=== PATIENT | female | born 1965 | race Caucasian/White ===

== ENCOUNTER → 2019-03-24 06:21 | Outpatient (CLI) | payer OTHER, SELFPAY ==
--- NOTE | 2019-03-24 14:05 | NEURO_ITS ---
NCS and/or EMG Patient Report Ordering Doctor: Nathaniel Vuong DATE OF SERVICE: 03/24/19 Mckenzie Edwards is a 53-year-old female presents for electrodiagnostic testing of the upper limbs. She reports numbness and tingling in the right hand. Electrodiagnostic findings: Right median motor nerve demonstrates prolonged dist al latency with normal amplitude and conduction velocity. Normal left median motor response. Normal ulnar motor response bilaterally. Normal median and ulnar F waves. Prolonged right median sensory latency at the wrist. Prolonged right median palmar latency. Normal radial and ulnar sensory responses. On needle EMG, all muscles tested in the upper limbs showed no evidence of denervation with normal motor unit action potentials Electrodiagnostic impression: This is an abnormal study in the upper limbs. 1. Electrodiagnostic findings demonstrate right-sided median mononeuropathy. This is consistent with a moderate right carpal tunnel syndrome. If there are any further questions, please do not hesitate to contact me.
== END ==
PROVIDERS: Family Provider Internal Medicine; PCP Internal Medicine; Referring Provider Nurse Practitioner Primary Care; Visit Provider Nurse Practitioner Primary Care
DX: G56.01 Carpal tunnel syndrome, right upper limb (principal); R20.2 Paresthesia of skin
CPT/HCPCS: 95886; 95912

== ENCOUNTER 2021-08-22 15:33 | Emergency (ER) | payer OTHER, SELFPAY ==
[2021-08-22 15:34] VITALS: BP 134/80; PULSE 82; RESP 14; TEMP 36.8; O2SAT 98; BMI 30.8
--- NOTE | 2021-08-22 15:44 | EX.ED.GENINJ ---
HPI History of Present Illness Chief Complaint: Head Injury Detail of Chief Complaint: Struck head against window and jammed her neck Informant: patient Onset/Context/Timing Onset: Days (Near fall Friday) Mechanism/Context: Blunt Injury and Fall Location: Vertex at head Current Severity: Mild Maximum Severity: Moderate Worsened by: None Relieved by: Nothing Associated Symptoms Associated Symptoms: Negative for Parasthesias, Weakness, Loss of function, Inability to ambulate, Loss of consciousness and Amnesia Narrative Narrative: Patient is a 56-year-old woman who had surgery at [facility] for a schwannoma. She has had problems with her balance prior to the surgery and has gotten possibly slightly worse since surgery. She states she lost her balance. She fell forward striking the top of her head against a window. The window did not break. She contacted the neurosurgeon because of persistent neck pain. He recommended that she go to the emergency department for further evaluation. She denies loss of conscious. She was not dazed. She does complain of intermittent mild headache over the past 24 hours. She denies any double vision, blurred vision or loss of vision. Nuys ringing in ears decreased hearing. She has trouble with speech or swallowing. She denies paresthesia, anesthesia or motor weakness upper lower extremity. She denies cardiac respiratory symptoms. She denies nausea or vomiting. Tetanus Immunization: 5-10 years Prior similar symptoms: Yes Recent Illness/Hospitalization: Yes (Surgery for schwannoma) [facility] Medical History (Updated 08/22/21 @ 16:[address] Ayden Gupta MD) Schwannoma Schwannoma of nerve of neck Allergy/AdvReac Type Severity Reaction Status Date / Time azithromycin [From Zithromax] AdvReac Rash Verified 08/22/21 15:34 Social History (Updated 08/22/21 @ 15:[address] Ayden Gupta MD) household members: none Smoking Status: Never smoker what type of physical activity do you participate in: none ROS ROS ED Constitutional Constitutional ED: Denies chills, fever(s), subjective, sweats or weight loss Eyes Eyes: Denies blurry vision or change in vision ENT ENT ED: Denies ear pain, rhinorrhea or sore throat Cardiovascular Cardiovascular: Denies chest pain or palpitations Respiratory/Chest Respiratory/Chest: Denies cough, dyspnea or dyspnea on exertion Gastrointestinal Gastrointestinal: Reports nausea; Denies abdominal pain, constipation, diarrhea, melena or vomiting Genitourinary Genitourinary ED: Denies dysuria, hematuria, LMP (females 10-50) or urinary frequency Musculoskeletal Musculoskeletal: Reports neck pain; Denies arthralgias, back pain or myalgias Integumentary Reports other Details: Healing incision right postauricular area ; Denies abscess, Abrasions or rash Neurologic Neurologic: Denies headache(s), paresthesias or weakness Endocrine Endocrinology: Denies polydipsia, polyphagia or polyuria EXAM Physical Exam Const Vital Signs: 08/22/21 15:34 08/22/21 15:50 Temperature 98.2 F Temperature Source Temporal Pulse Rate 82 Respiratory Rate 14 Respiratory Effort Normal Non-Labored Respiratory Depth Normal Respiratory Pattern Normal Blood Pressure 134/80 H Blood Pressure Mean 98 Pulse Ox 98 Oxygen Delivery Method Room Air Room Air Positive well nourished and well developed General Appearance ED: well developed HEENT Reports TM's clear atraumatic; Negative for tenderness Nose: Negative for septum abnormal Tympanic Membrane ED: Yes TM's clear Eyes PERRL and EOMs intact bilaterally Neck full ROM Neck Narrative: Patient reported mild discomfort with rotation to the right and having her touch her chin against her shoulder. She did not have discomfort with flexion extension. General: Negative for tenderness Resp normal respiratory effort and clear to auscultation bilaterally Cardio regular rhythm, S1 normal heart sound, S2 normal heart sound and no murmurs Rate: regular rate Neuro oriented x3, CN's II-XII intact bilaterally and no sensory deficits noted Sensorium / Orientation: alert Motor Exam: strength 5/5 throughout Deep Tendon Reflexes: Rt Triceps (C7): 3+, Lt Triceps (C7): 3+, Rt Biceps (C5, C6): 3+, Lt Biceps (C5, C6): 3+, Rt Brachioradialis (C6): 3+, Lt Brachioradialis (C6): 3+, Rt Patellar (L4): 3+, Lt Patellar (L4): 3+ and Rt Ankle (S1): 3+ Deep Tendon Reflexes Back: Rt Patellar (L4): 3+, Lt Patellar (L4): 3+ and Rt Ankle (S1): 3+ Plantar Reflex: Downgoing: bilateral Psych mental status grossly normal and thought process normal Skin no rashes or lesions noted, no wounds and No no jaundice Rashes: No rashes noted MDM MDM MDM Narrative Medical decision making narrative: Per the [place] CT head rule and [place] rule imaging of the head is not required. Patient has minimal neck pain will obtain x-ray of the neck to determine if there is any abnormality since this occurred several days ago. Suspect this is musculoskeletal. Radiography Diagnostic Testing: Clinical Impression(s) from Imaging Studies Cervical Spine X-Ray 08/22/21 16:00 IMPRESSION: Normal x-ray examination of the visualized cervical spine. Electronically Signed: Jonas Mejias MD at 16:18 EDT , Three-view x-ray of the cervical spine is normal. There is no degenerative changes, subluxation, blastic or lytic lesions. Alignment is normal. This was independently reviewed and interpreted by me. 1613 Discharge Plan Triage Chief Complaint: Head Injury ED Provider: Ayden Gupta Dx/Rx/DC Orders Clinical Impression: Contusion of head, Acute neck pain Instructions: ED Head Injury (Adult), ED Neck Sprain or Strain Primary Care Provider: Joslyn Dumas Referrals: Joslyn Dumas MD [Primary Care Provider] - As Needed Disposition Disposition: Home, Self Care
--- NOTE | 2021-08-22 16:00 | RAD_ITS ---
STUDY: X-RAY - CERVICAL SPINE REASON FOR EXAM: Female, 56 years old. Injury/Pain TECHNIQUE: 3 view(s) of the cervical spine were obtained. COMPARISON: None FINDINGS: Normal anterior atlantoaxial articulation. Normal odontoid process. Normal cervical lordosis. Normal vertebral bodies and endplates. Normal disc space heights. Normal visualized intervertebral neuroforamina. The soft tissue structures are unremarkable. RAD/Cerv Spine 2 or 3 Views IMPRESSION: Normal x-ray examination of the visualized cervical spine. Electronically Signed: Jonas Mejias MD at 16:18 EDT ,
[2021-08-22 16:34] VITALS: BP 128/76; PULSE 81; RESP 15; O2SAT 99
== END 2021-08-22 16:34 | disposition home or self-care (01) ==
PROVIDERS: Emergency Provider Emergency Medicine; PCP Internal Medicine; Visit Provider Emergency Medicine
DX: S00.93XA Contusion of unspecified part of head, initial encounter (principal); W01.198A Fall on same level from slipping, tripping and stumbling with subsequent striking against other object, initial encounter; M54.2 Cervicalgia; Z98.890 Other specified postprocedural states
CPT/HCPCS: 72040; 99282

== ENCOUNTER 2022-01-31 06:46 | Day surgery (SDC) | payer OTHER, SELFPAY ==
--- NOTE | 2022-01-22 13:38 | EKG12_ITS ---
Test Reason : PRE OP Blood Pressure : / mmHG Vent. Rate : 081 BPM Atrial Rate : 081 BPM P-R Int : 158 ms QRS Dur : 080 ms QT Int : 392 ms P-R-T Axes : 031 008 021 degrees QTc Int : 455 ms Normal sinus rhythm Normal ECG Confirmed by CHELE WHIPPLE, ELBA ([id number]), film editor GUCIHO DEL ROSARIO ([id number]) on 01/23/2022 9:31:26 AM Referred By: Eze Norton Confirmed By:ELBA ELAINE MD
--- NOTE | 2022-01-22 13:38 | RAD_ITS ---
STUDY: CHEST SERIES--2 VIEWS OF 1356 HOURS ON 01/22/2022 REASON FOR EXAM: Pre-operative chest for a 56-year-old female. TECHNIQUE: A standard 2 view chest x-ray series was obtained. COMPARISON: None. FINDINGS: Normal mineralization. Mild osteophytic degenerative changes of the thoracic spine. No cardiomegaly or heart failure. No pulmonary infiltrates, atelectasis, effusion, or pulmonary mass lesions. Multi-loop, dilated, air-filled small intestine beneath the left hemidiaphragm. RAD/Chest PA and Lateral IMPRESSION: 1. No active cardiopulmonary disease. 2. Multi-loop, dilated, air-filled small intestine beneath the left hemidiaphragm. Electronically Signed: Cain Vale MD at 2:02 EDT ,
[2022-01-22 14:14] LABS: Absolute Lymphocyte Count 1.67 X10^3/uL (0.83-4.51); Absolute Neutrophil Count 4.4 X10^3/uL (2.0-7.7); Basophil# 0.04 X10^3/uL; Basophil% 0.6 % (0-1); Eosinophil# 0.17 X10^3/uL; Eosinophils% 2.5 % (0-5); Hematocrit 39.7 % (37-47); Hemoglobin 13.2 g/dL (12.0-15.0); Lymphocyte # 1.67 X10^3/ul (0.83-4.51); Lymphocyte % 24.9 % (19-41); Mean Corp Hgb Conc 33.2 g/dL (32-36); Mean Corpuscular Hgb 29.1 pg (27.0-32.0); Mean Corpuscular Volume 87.6 fL (81-99); Monocyte# 0.47 X10^3/uL; NRBC Flagged by Analyzer 0 % (0-5); Neutrophil # 4.35 X10^3/uL (2.7-7.7); Neutrophil % 64.9 % (47-70); Platelet Count 253 K/mm3 (150-450); RBC Distribution Width CV 12.6 % (11.6-14.6); Red Blood Count 4.53 M/mm3 (4.2-5.4); White Blood Count 6.7 K/mm3 (4.4-11.0)
[2022-01-22 14:56] LABS: Thyroid Stim Hormone (TSH) 2.44 uIU/mL (0.358-3.74)
[2022-01-22 15:19] LABS: Anion Gap 7 (5-15); BUN 13 mg/dL (7-18); BUN/Creat Ratio 17.4 RATIO (10-20); Calcium,Total 9.3 mg/dL (8.5-10.1); Chloride 106 mmol/L (98-107); Creatinine, Serum 0.74 mg/dL (0.55-1.02); EST Glomerular Filtration Rate 85 mL/min (>60); Est Glom Filt Rate - Afr Amer 103 mL/min (>60); Glucose 100 mg/dL (74-106); Potassium 3.5 mmol/L (3.5-5.1); Sodium Level 142 mmol/L (136-145)
[2022-01-31 07:15] VITALS: BP 119/58; PULSE 85; RESP 18; TEMP 36.9; O2SAT 100; BMI 27.4
[2022-01-31] MEDS: Lactated Ringers 1,000 ML 15 ML IV ×2 (07:23→10:11)
[2022-01-31] MEDS: Cefazolin 2 GM in 0.9% Normal Saline 100 ML IV (08:00)
[2022-01-31] MEDS: Epinephrine (1 mg/ml) 1 MG/ML VIAL (08:30)
--- NOTE | 2022-01-31 09:42 | DCINST_ITS ---
Discharge Instructions Follow Up Care Test Results: Test results from this visit will be discussed in further detail at your follow- up appointment, if applicable. Discharge Plan Admission Primary Reason for Your Visit: Right shoulder rotator cuff repair Attending Provider: Eze Norton Primary Care Provider: Joslyn Dumas Instructions Additional Instructions / Restrictions: Follow preprinted instructions from your surgeons office Discharge Orders/Prescriptions Prescriptions: No Action levothyroxine 25 mcg tablet 25 mcg PO DAILY omeprazole 20 mg Capsule,Delayed Release(Dr/Ec) 20 mg PO DAILY escitalopram oxalate 10 mg tablet 10 mg PO DAILY vitamin B complex [B Complex] Capsule 1 cap PO DAILY cholecalciferol (vitamin D3) [Vitamin D3] 125 mcg (5,000 unit) Tablet 125 mcg PO DAILY Other Ambulatory Orders: 12 Lead EKG (Routine) Timeframe: 20220122 Location: None Selected Ordered By: Dr. Eze Norton Referrals / Follow Up: Joslyn Dumas MD [Primary Care Provider] - Eze Norton DO [Med Staff - Active Staff] - Within 2 Weeks Disposition Disposition (needs filled in before D/C Order can be placed): Home, Self Care
[2022-01-31 10:03] VITALS: BP 119/58; BP 127/63; PULSE 83; RESP 16; TEMP 35.9; O2SAT 100
[2022-01-31 10:15] VITALS: BP 119/58; BP 124/70; PULSE 74; RESP 14; O2SAT 100
--- NOTE | 2022-01-31 10:18 | PCM.OPRPT ---
Report of Operation Date of Procedure: 01/31/22 Description of Surgical Findings:: Preoperative diagnosis: 1. Right shoulder rotator cuff tear 2. Right shoulder subacromial impingement syndrome 3. Symptomatic right acromioclavicular arthrosis 4. Superior labral tear anterior posterior with biceps tendinosis right shoulder Postoperative diagnosis: 1. Right shoulder rotator cuff tears of the upper third subscapularis and 80% bursal partial thickness supraspinatus tear 2. Right shoulder subacromial impingement syndrome 3. Symptomatic right acromioclavicular arthrosis 4. Superior labral tear anterior posterior with biceps tendinosis right shoulder Procedure: 1. Diagnostic and operative right shoulder arthroscopy with rotator cuff repair 2. Right shoulder subacromial decompression 3. Right shoulder arthroscopic distal clavicle excision 4. Right shoulder arthroscopic debridement of labrum, capsular synovitis, subacromial bursitis 5. Right shoulder arthroscopic biceps tenodesis Primary Surgeon: Eze Norton DO Line Lead: Liana Hendricks PA-C Anesthesia: General LMA with interscalene block Anesthesiologist: Abel Mary MD [employer] Supervisor: Alex Reece CRNA Complications: None apparent Specimen: None Estimated blood loss: 10 cc IV fluids: Per anesthesia record Urine output: None Packing/drains: None Implants: Arthrex 4.75 mm swivel lock anchor x2 Intraoperative findings: Synovitis right shoulder, type II SLAP tear, extensive right shoulder subacromial bursitis, Downsloping acromioclavicular joint and distal acromion, upper third border subscapularis tear, 80% bursal sided tear of the supraspinatus Preoperative indications: This is a 56-year-old female seen in the outpatient setting for right shoulder pain and weakness. She had profound weakness of his supraspinatus. MRI was obtained. MRI demonstrated partial bursal sided tear of the supraspinatus, questionable subscapularis tear, labral tearing, downsloping spur from the acromion and AC joint arthrosis. I recommended a right shoulder diagnostic and operative arthroscopy with subacromial decompression, rotator cuff repair versus debridement, biceps tenodesis and distal clavicle excision. We discussed at length the risks, benefits, alternatives the procedure. Risks included but were not limited to bleeding, infection, loss of life or limb, nonhealing tendon, persistent pain, persistent weakness, stiffness, need for prolonged immobilization, prolonged therapy, DVT or PE, risk of anesthesia, neurovascular injury, need for additional surgery. Patient expressed understanding these risks and wished to proceed with surgery. Description of procedure: Patient was identified in the preoperative holding area by name, medical record number, and date of . Informed consent was confirmed with the patient. The operative extremity was marked with a surgical marker. All questions were answered to the patient's satisfaction. We discussed potential need for catheterization postoperatively. An interscalene block was administered prior to the procedure by the anesthesia staff. At time of her procedure, patient was brought to the operative suite and positioned supine a standard operating table with a beachchair attachment. All bony prominences were well-padded. General anesthesia was induced and laryngeal mask airway placed. After the tube was secured, we elevated the head of the bed to position the patient into the beachchair position. A pillow was placed on the patient's legs. All bony prominences were well-padded. The nonoperative extremity was placed in a well arm pierce. A strap was placed across the patient's torso and the butterfly attachment of the bed was removed to gain access to the posterior scapula. We then spun the bed approximately 45 degrees. We then prepped and draped the operative upper extremity in a normal, sterile orthopedic fashion. We performed a timeout with all parties in attendance in agreement with the side, site, and operation be performed. No concerns were voiced and we elected to proceed. 2 g Ancef was administered prior to the incision by anesthesia staff. I first outlined the bony landmarks of the shoulder. I established a standard posterior portal with an 11 blade scalpel. Blunt tipped trocar in cannula was inserted into the glenohumeral joint. The joint was insufflated with normal saline solution with epinephrine in the first 2 bags. Trocar was removed and diagnostic arthroscopy was commenced. I established a standard anterior portal with the assistance of a spinal needle under direct visualization just superior to the upper border of the subscapularis. Probing of the subscapularis as well as a posterior lever test revealed an upper third border subscapularis tear. Unstable biceps anchor was noted with peelback test. There was degenerative tearing of the glenoid labrum which appeared to be impinging in the glenohumeral joint. This was debrided with a radial resector. I then proceeded with repair of the subscapularis with a cinch stitch utilizing a fiber loop suture through the upper third border of the tendon. This was cinched and retrieved out the anterior portal. I then performed a loop and tack tenodesis arthroscopically of the biceps tendon. Since suture was passed around the tendon near its insertion, and then the tail the suture was pierced through the tendon proximally. Tenotomy was performed at the biceps insertion with the radiofrequency ablator. Tendon was allowed to retract into the intertubercular groove. Tails of the suture from the subscapularis and long head of biceps tendon were passed through the eyelet of a swivel lock suture. I then punched for the swivel lock suture just at the lateral border of the superior portion of the lesser tuberosity. Sutures were tensioned and swivel lock was placed with excellent bony fixation. Sutures were then cut flush with the suture anchor. I then placed a 0 PDS suture via spinal needle to mauricio the insertion of the supraspinatus, which appeared pristine from the articular side. I then withdrew the arthroscope and cannula, reintroduced the blunt tipped trocar to the cannula and inserted into the subacromial space. I established a standard lateral portal with the assistance of a spinal needle and subsequent 11 blade scalpel. The radial resector was then introduced through the lateral portal and a subacromial bursectomy was performed as there was extensive bursitis in the subacromial space. The undersurface of the acromion was skeletonized with the radiofrequency ablator as well as peeling off the undersurface and attachment of the coracoacromial ligament. There was a downsloping likely type II spur off the distal portion of the acromion. This was resected utilizing the 5.5 mm bur to a flat acromion. The acromioclavicular joint capsule was then identified and the inferior portion was released with the radiofrequency ablator. I then turned our attention to the supraspinatus. Marking suture was identified. I probed the insertion of the tendon and only approximately 2 mm of the tendon remained on the bursal side. Given the greater than 50% involvement on the bursal side, I elected to proceed with takedown of the remaining tendon and perform rotator cuff repair. Bursal side of the cuff was debrided with radial resector. Tendon was taken down with the radiofrequency ablator. I then decorticated the footprint with a bur. I proceeded with a ripstop type single anchor lateral row repair. A fiber tape was passed utilizing the retrograde scorpion suture passer through first the anterior and then posterior limbs of the crescent tear. We then passed a fiber loop medial to the fiber tape. These were then tensioned. They were passed through the eyelet of a 4.75 mm swivel lock anchor. I then selected a point approximately 5 mm lateral to the supraspinatus footprint. The Arthrex anchor punch was then passed in appropriate depth and withdrawn. The anchor was then placed and sutures tensioned. A swivel lock was impacted and subsequently tightened to an appropriate depth with excellent, appropriate tension of the suture. The tear appeared to reapproximate to its cher-ae heights footprint very well without excessive tension. There were no identifiable dogears. I then turned my attention to the distal clavicle. Approximately 8 mm of the distal clavicle was then excised with a 5.5 mm arthroscopic bur leaving the posterior and superior portions of the joint capsule intact. The subacromial space was then thoroughly lavaged. Arthroscopic instruments were removed. Portal sites were closed in interrupted [id number] fashion with 4-0 nylon suture. Sterile compression dressing was applied. Patient was then placed in UltraSling. She was able to be safely extubated in the operative suite. She was transferred to his gurney and subsequently to PACU in stable condition. Need for skilled resident programs assistant: Liana Hendricks PA-C was critical to the outcome of the case. During the course of the procedure the physician resident programs assistant played a vital role. Her intimate knowledge of my steps in the procedure aided in safe and expedient completion of the procedure. The PA played a vital role in positioning particularly in obtaining the appropriate positioning. The PA was also vital and obtaining tendon reduction and assisting with hardware placement. She also played a vital role in closure and sling application with my direct supervision. Postoperative plan: Patient will be nonweightbearing to the operative extremity. She should maintain his sling at all times unless to shower. She may shower on postoperative day #2 if no significant drainage. She will follow up in approximately 2 weeks for suture removal. We will plan to initiate twice daily aspirin for DVT prophylaxis starting tomorrow. Prescription for oxycodone provided at her preoperative appointment.
[2022-01-31 10:30] VITALS: BP 119/58; BP 123/67; PULSE 79; RESP 14; O2SAT 100
[2022-01-31 10:43] VITALS: BP 119/58; BP 132/69; PULSE 77; RESP 14; TEMP 36.2; O2SAT 99
[2022-01-31 10:55] VITALS: BP 119/58
== END 2022-01-31 11:21 | disposition home or self-care (01) ==
LOC: SDC 06:47 → AC 06:47
PROVIDERS: Anesthesiology; PCP Internal Medicine; Referring Provider Student in an Organized Health Care Education/Training Program; Visit Provider Student in an Organized Health Care Education/Training Program
PROC: (CPT 29827; principal; 2022-01-31 07:50)
DX: S46.011A Strain of muscle(s) and tendon(s) of the rotator cuff of right shoulder, initial encounter (principal); S43.431A Superior glenoid labrum lesion of right shoulder, initial encounter; M75.01 Adhesive capsulitis of right shoulder; M75.21 Bicipital tendinitis, right shoulder; M19.011 Primary osteoarthritis, right shoulder; M75.41 Impingement syndrome of right shoulder; M65.811 Other synovitis and tenosynovitis, right shoulder; M75.51 Bursitis of right shoulder; X58.XXXA Exposure to other specified factors, initial encounter; E07.9 Disorder of thyroid, unspecified; K21.9 Gastro-esophageal reflux disease without esophagitis; F41.9 Anxiety disorder, unspecified; Z78.0 Asymptomatic menopausal state; E66.3 Overweight; Z68.28 Body mass index [BMI] 28.0-28.9, adult; Z79.890 Hormone replacement therapy; Z79.899 Other long term (current) drug therapy
CPT/HCPCS: 29827; 29826; 29828; 29824; 64415; 01630; 36415; 71046; 80048; 84443; 85025; 93005; C1713; J7120; J2405